=== PATIENT | male | born 1940 | race Caucasian/White ===

== ENCOUNTER 2016-10-13 09:58 | Day surgery (SDC) | payer MEDICARE, BC ==
--- NOTE | 2016-10-11 17:36 | HP ---
PROCEDURE DATE: 10/13/16 HISTORY OF PRESENT ILLNESS: The patient is a 76 y/o with history of anemia, no bloody stools, prior history of polyps in the past, history of some aches and pains in upper stomach at times. In need of follow-up screening colonoscopy as well as upper endoscopy for evaluation. PAST MEDICAL HISTORY: Heart disease. Had coronary artery bypass graft in the past. Had lung biopsy in the past. Also, includes chronic obstructive pulmonary disease and neuropathy. CURRENT MEDICATIONS: Includes folic acid, B6, B12, vitamin D and C, fish oil, calcium, alendronate, simvastatin, metoprolol, and aspirin. He is also on albuterol sulfate and gabapentin. ALLERGIES: DARVON. FAMILY HISTORY: Negative for colon cancer. SOCIAL HISTORY: 1 pack per day smoker. Denies alcohol abuse. REVIEW OF SYSTEMS: 12 systems reviewed pertinent for as noted above chronic lung disease and some hypertension. No current chest pain or palpitations. Otherwise, pertinent for as noted above. Other systems negative or noncontributory other than above and per preadmission questionnaire. PHYSICAL EXAMINATION: GENERAL: No acute distress. HEENT: Sclerae nonicteric. NECK: No JVD. CHEST: Equal excursion. Nonlabored breathing. CVS: Regular rate and rhythm. ABDOMEN: Soft, nontender. No peritoneal signs. He had had some mild tenderness in the epigastrium at times, but no lower abdominal tenderness. No rebound. No guarding. No peritoneal signs. EXTREMITIES: No significant edema. NEURO: Alert, moving extremities symmetrically. No gross motor deficits noted. IMPRESSION: HISTORY OF ANEMIA. HISTORY OF SOME UPPER ABDOMINAL ACHES AT TIMES. ALSO, PRIOR HISTORY OF POLYPS. He is in need of follow-up screening colonoscopy as well as upper endoscopy for further evaluation given his anemia and some upper abdominal aches. He was shown the risk sheet and explained the procedure in detail, but not limited to, bleeding; infection; small risk of bowel injury or perforation possibly requiring open procedure; small risk of missed or nondiagnosis or incomplete exam possibly requiring barium enema or other studies or procedures; general risk of anesthesia or sedation, but not limited to. He understands and agrees to the planned procedure. Will proceed with EGD and colonoscopy under MAC anesthesia as an outpatient.
[~2016-10-13 09:58] MED LIST: DIPRIVAN 200 MG/20 ML IV ONE; PHENYLEPHRINE HCL IJ ONE
[2016-10-13] MEDS ORDERED: Lactated Ringers 1,000 ML IV SCH (10:00)
[2016-10-13] MEDS ORDERED: Lactated Ringers 1,000 ML IV ONE (12:21)
--- NOTE | 2016-10-13 16:11 | OP ---
SURGERY DATE: 10/13/16 SURGERY TIME: 1143 PREOPERATIVE DIAGNOSIS: 1. ANEMIA. 2. HISTORY OF POLYPS. 3. HISTORY OF SOME UPPER ABDOMINAL PAIN. 4. NEED FOR UPPER AND LOWER ENDOSCOPY. POSTOPERATIVE DIAGNOSIS: 1. PREPYLORIC ULCERATION AND GASTRITIS. 2. SHORT SEGMENT OF LESS THAN 5 MM OF QUESTION OF GASTROESOPHAGITIS VS EARLY POTTER'S VS SOME NORMAL VARIATION IN THE GASTROESOPHAGEAL JUNCTION. 3. SOMEWHAT POOR PREP LIMITING COLON EXAM. 4. DIVERTICULOSIS. 5. SMALL RAISED LESIONS VS HYPERPLASTIC LESIONS VS EARLY POLYPS SIGMOID COLON AND RECTUM. 6. VERY TORTUOUS COLON WITH SPASM NOT RELAXING ENOUGH TO PASS THE SCOPE PAST THE TRANSVERSE COLON. PROCEDURE: 1. EGD with cold biopsy antrum margin of prepyloric ulcers for path and Helicobacter pylori. 2. Cold biopsy small bowel to evaluate for celiac sprue. 3. Cold biopsy distal esophagus to evaluate for Potter's esophagus. 4. Colonoscopy to transverse colon with hot biopsy removal of small raised lesions sigmoid colon and rectum. SURGEON: Dr. Wilmar Vargas. ANESTHESIA: MAC. ESTIMATED BLOOD LOSS: Minimal. INDICATIONS: As noted above. Risks and benefits explained in detail, but not limited to. Consent was obtained. DESCRIPTION OF PROCEDURE AND FINDINGS: The patient was taken to the endoscopy room. MAC anesthesia was induced. After official time-out, no disagreement in planned procedure. Bite block positioned. Video gastroscope easily passed down the esophagus through the patent pylorus to the junction of the 2nd and 3rd portion of the duodenum. The duodenum and duodenal bulb were grossly unremarkable given his symptom complaint. Cold biopsy was taken in the small bowel to evaluate for celiac sprue. The scope pulled back into the antral prepyloric area. He definitely had prepyloric ulcer and area of inflammation. Whether he felt he possibly had another ulcer in the past, cold biopsies were taken in the margins of this for both path and further evaluation of Helicobacter pylori. There were no signs of any active bleeding. Whether he had had anemia from these ulcers or not in the past is unclear. Otherwise, on retroflex, there was no large hiatal hernia. No other polyps or masses. The scope was pulled back. The gastroesophageal junction noted to be about 42 cm. Had a short segment with question of distal gastroesophagitis vs early Potter's vs normal variation. Cold biopsy was taken of the distal esophagus in this area to evaluate for Potter's esophagus. The remainder of the esophagus was grossly unremarkable. No signs of any obvious masses or other mucosal lesions. The scope was withdrawn. Patient tolerated the procedure well. There were no immediate complications with this portion of the procedure. Attention was then turned to the colonoscopy exam. Digital rectal exam did not reveal any rectal masses. He had some internal/external hemorrhoids. Video colonoscope inserted and passed up through the tortuous sigmoid and descending. Had a lot of spasm that would not release to allow the scope to be passed more past the very distal part of the transverse colon. Despite multiple position changes and external abdominal palpation and pressure, the spasm would not release enough to allow the scope to pass forward safely. It was felt further attempts would increase the risk of perforation more than any benefit. Otherwise, felt it would be safer to go ahead and withdrawal the scope and order barium enema to both get a road map of the colon and to rule out any other lesions on the right colon. It was felt this was the safest approach rather than forcing the issue and gravely increasing the risk of perforation particularly as he was in need of cardiac intervention. Otherwise, scope was withdrawn. There were 2 or 3 small raised lesions in the sigmoid colon and rectum that were removed with hot biopsy forceps. Whether these were early polyps vs hyperplastic lesions vs hyperplasia of the mucosa, they were removed with hot biopsy forceps and brief bursts of cautery. Good hemostasis noted. Otherwise, he had diverticulosis in the left colon and had small internal/external hemorrhoids. Again, no signs of any active bleeding. He just had green stool. The prep overall was somewhat poor with areas of liquidy, semisolid stool limiting the exam. The scope was withdrawn. The patient tolerated the procedure well. There were no immediate complications. Given the tortuosity of his colon and spasm that would not relax enough to allow for the scope to safely pass further, will order an outpatient barium enema for completeness to rule out any other right-sided lesion prior to him proceeding with his coronary intervention.
[2016-10-13 17:07] VITALS: O2SAT 96
[2016-10-13 17:08] VITALS: BP 113/58; PULSE 57
== END 2016-10-13 14:35 | disposition home or self-care (01) ==
LOC: SDC 09:58
PROVIDERS: ATTEND Surgery
PROC: 0DB78ZX Excision of Stomach, Pylorus, Via Natural or Artificial Opening Endoscopic, Diagnostic (ICD-10-PCS; principal; 2016-10-13)
PROC: 0DB38ZX Excision of Lower Esophagus, Via Natural or Artificial Opening Endoscopic, Diagnostic (ICD-10-PCS; 2016-10-13)
PROC: 0DB88ZX Excision of Small Intestine, Via Natural or Artificial Opening Endoscopic, Diagnostic (ICD-10-PCS; 2016-10-13)
PROC: 0DBL8ZX Excision of Transverse Colon, Via Natural or Artificial Opening Endoscopic, Diagnostic (ICD-10-PCS; 2016-10-13)
PROC: 0DBN8ZX Excision of Sigmoid Colon, Via Natural or Artificial Opening Endoscopic, Diagnostic (ICD-10-PCS; 2016-10-13)
DX: K25.9 Gastric ulcer, unspecified as acute or chronic, without hemorrhage or perforation (principal); K29.70 Gastritis, unspecified, without bleeding; K57.90 Diverticulosis of intestine, part unspecified, without perforation or abscess without bleeding; K63.9 Disease of intestine, unspecified; D12.5 Benign neoplasm of sigmoid colon; K62.1 Rectal polyp; K58.9 Irritable bowel syndrome, unspecified; Z86.010 Personal history of colon polyps; I51.9 Heart disease, unspecified; Z95.1 Presence of aortocoronary bypass graft; J44.9 Chronic obstructive pulmonary disease, unspecified; G62.9 Polyneuropathy, unspecified; Z79.899 Other long term (current) drug therapy; Z79.4 Long term (current) use of insulin
CPT/HCPCS: 00740; 00810; 36415; 88305; 88312; 99100; J2370; J2704